=== PATIENT | male | born 1995 | race Caucasian/White ===

== ENCOUNTER 2021-01-19 08:23 | Emergency (ER) | payer SELFPAY ==
--- NOTE | ~2021-01-19 | XR_ITS ---
EXAMINATION: XR FINGER, LEFT CLINICAL INFORMATION: Left 3rd digit laceration at the distal phalanx. COMPARISON: None TECHNIQUE: PA view of the left hand as well as oblique and lateral views of the left long finger. FINDINGS: Soft tissue defect/laceration through the distal aspect of the 3rd finger. No radiopaque foreign body. No adjacent fracture. No osseous erosion. No abnormal soft tissue calcification. No dislocation. XR/XR finger LT min 2V IMPRESSION: Soft tissue laceration through the distal aspect of the 3rd finger without associated osseous abnormality.
[2021-01-19 08:44] VITALS: BP 139/92; PULSE 98; RESP 16; TEMP 36.3; O2SAT 100; BMI 19.9
--- NOTE | 2021-01-19 10:05 | ED.WOUNDLAC ---
HPI - Wound/Laceration General Chief Complaint: Wound/Laceration Stated Complaint: finger laceration Time Seen by Provider: 01/19/21 09:41 Source: patient Mode of arrival: ambulatory Limitations: no limitations History of Present Illness HPI narrative: 25-year-old male presenting to the ED after he had a work related injury where he lacerated his finger with a piece of a metal from the freezer. He reports that he is not up-to-date on tetanus. He reports pain denies any thoughts of foreign bodies or any other injuries complaints or concerns at this time. Onset (ago): minute(s) (Prior to arrival) Extremity Location: left: hand (Middle finger distal aspect) Place: work Patient tetanus UTD: No Context: accidental Associated symptoms: pain Treatments prior to arrival: bandage Related Data Previous Rx's Medication Instructions Recorded acetaminophen 500 mg tablet 1,000 mg PO QID PRN #14 tab 01/19/21 (Tylenol Extra Strength) cephalexin 500 mg capsule 500 mg PO Q6H 10 Days #40 cap 01/19/21 ibuprofen 800 mg tablet 800 mg PO Q8H PRN #14 tab 01/19/21 oxycodone 5 mg tablet 5 mg PO Q6H PRN #14 tab 01/19/21 Allergies Allergy/AdvReac Type Severity Reaction Status Date / Time No Known Allergies Allergy Verified 01/19/21 08:47 Review of Systems Review of Systems: Constitutional : No Fever, No Chills, Cardiovascular : No Chest Pain, No SOB Respiratory : No Dyspnea Gastrointestinal : No abdominal pain Musculoskeletal : No Joint Swelling Skin : positive skin laceration, No Foreign bodies, No rash, No surrounding erythema Neuro : No Weakness, No Numbness/tingling Psych : No SI/HI/thoughts of self injury Yes all other systems are reviewed and are negative FOR[facility]LY [facility] Past Medical History Attestation statement: The following information was validated with the patient. Medical History No known health problems Social History Social History Advance Directives: No Advance Directives Information Provided: No Physical Exam Vital Signs: Vital Signs: Last Vital Signs Temp 97.3 F 01/19/21 08:44 Pulse 98 01/19/21 08:44 Resp 16 01/19/21 08:44 BP 139/92 H 01/19/21 08:44 Pulse Ox 100 01/19/21 08:44 Body Mass Index 19.9 vital signs have been reviewed as normal and appeared to be correct. Blood pressure hypertensive 139/92 Heart rate normal. Respiration rate normal. Temperature normal. Oxygen saturation normal. Appearance: Alert. Oriented X3. No acute distress. Head: Normal external exam. Normocephalic. Atraumatic. Eyes: PERRLA. EOMI. Conjunctiva and sclera normal. Eyelids normal. ENT: Pharynx normal. Uvula midline. Moist mucous membranes. Neck: Normal inspection. Neck supple. FROM. CVS: Normal heart rate and rhythm. Respiratory: No respiratory distress. Painless inspiration. Skin: Skin warm and dry. Normal skin color. Normal skin turgor. No rashes/lesions/lacerations noted. Extremities: To left hand middle finger distal aspect patient has a 3 cm deep laceration that cuts directly vertical although no bony tenderness or obvious ligamentous or tendon injury. Patient has normal sensation. No foreign bodies are noted. Otherwise all other Extremities exhibit normal range of motion and nontender. Neuro: Oriented X 3. No motor deficit. No sensory deficit. Reflexes normal. Normal steady gait. No focal neuro deficits noted. Vascular: + radial pulses Normal cap refill. No cyanosis noted to upper extremity nails Course Course Course Narrative: Patient is now status post laceration repair with 9 stitches placed. Patient tolerated procedure well. No complications. Tetanus updated at this time. Patient given Keflex. X-ray negative for any acute processes. We will DC home with symptomatic treatment antibiotics and instructions to follow-up with hand surgeon and [facility] before returning to work on full duty instructions return in 10 days for suture removal. Patient is again if can not other at bedside understand with this plan. MDM - Wound/Laceration Medical Records Attestation: I reviewed the patient's medical records. Imaging Data Left hand middle finger x-ray: Attestation: I personally reviewed and interpreted this imaging study as follows: Radiologist's impression: FINDINGS: Soft tissue defect/laceration through the distal aspect of the 3rd finger. No radiopaque foreign body. No adjacent fracture. No osseous erosion. No abnormal soft tissue calcification. No dislocation.? XR/XR finger LT min 2V IMPRESSION: Soft tissue laceration through the distal aspect of the 3rd finger without associated osseous abnormality. Procedures Laceration Laceration 1: Site: hand (Middle finger distal aspect) Side (If applicable): left Size (cm): 3 Description: linear, flap and clean Depth: involves muscle layer Local Anesthetic: lidocaine 1% Amount of anesthesia used (mL): 4 Pre-repair: wound explored, irrigated extensively, deep structures intact and wound margins revised Skin layer closed with: nylon Size (cm): 5-0 Number of sutures: 9 Technique: simple, interrupted Critical Care Time Critical Care Time Critical Care Time: Yes Total Critical Care Time: 60 Attestation: I personally attest to this time spent taking care of the patient Discharge Plan Discharge Clinical Impression: Laceration, Work related injury Patient Disposition: Home, Self-Care Instructions: Finger Laceration (ED), Return to Work Instructions (ED) Prescriptions: New ibuprofen 800 mg tablet 800 mg PO Q8H PRN (Reason: pain) Qty: 14 RF: 0 acetaminophen [Tylenol Extra Strength] 500 mg tablet 1,000 mg PO QID PRN (Reason: fever or pain) Qty: 14 RF: 0 cephalexin 500 mg capsule 500 mg PO Q6H 10 Days Qty: 40 RF: 0 oxycodone 5 mg tablet 5 mg PO Q6H PRN (Reason: pain) Qty: 14 RF: 0 Referrals: [facility] [Provider Group] - 01/19/21 (Follow-up with [facility] not sure if her company is part with ours) Ban George MD [Physician] - 01/19/21 (Call today to make a follow-up appointment within 1 week) Beatrice Reese PA [Emergency Midlevel Provider] - 10 days (For suture removal) Stand Alone Forms: Work/School Release Print Language: Mexican
[2021-01-19] MEDS: oxyCODONE HCl Immed Release 5 MG TABLET PO (10:10)
[2021-01-19] MEDS: cephALEXin 500 MG CAPSULE PO (10:10)
[2021-01-19] MEDS: Diphth,Pertus(ACell),Tet Adult 0.5 ML SYRINGE IM (10:11)
[2021-01-19] MEDS: Lidocaine HCl 1 % MPF 5 ML VIAL SUBCUT (10:12)
== END 2021-01-19 11:03 | disposition home or self-care (01) ==
PROVIDERS: Emergency Provider Emergency Medicine
DX: S61.213A Laceration without foreign body of left middle finger without damage to nail, initial encounter (principal); W26.8XXA Contact with other sharp object(s), not elsewhere classified, initial encounter; Y93.9 Activity, unspecified; Y92.89 Other specified places as the place of occurrence of the external cause; Y99.0 Civilian activity done for income or pay
CPT/HCPCS: 12002; 73140; 90471; 90715; 99284

== ENCOUNTER → 2021-01-21 12:38 | Outpatient (BNVA) | payer OTHER, SELFPAY | PROVIDERS: Visit Provider Physician Assistant | DX: S61.213A Laceration without foreign body of left middle finger without damage to nail, initial encounter (principal); W45.8XXA Other foreign body or object entering through skin, initial encounter | CPT/HCPCS: 99203 ==

== ENCOUNTER → 2021-01-26 09:31 | Outpatient (BNVA) | payer OTHER, SELFPAY | PROVIDERS: Visit Provider Physician Assistant | DX: S61.213A Laceration without foreign body of left middle finger without damage to nail, initial encounter (principal); W26.9XXA Contact with unspecified sharp object(s), initial encounter | CPT/HCPCS: 99202; 99213 ==

== ENCOUNTER → 2021-01-28 09:19 | Outpatient (BNVA) | payer OTHER, SELFPAY | PROVIDERS: PCP Emergency Medicine; Visit Provider Physician Assistant | DX: S61.213A Laceration without foreign body of left middle finger without damage to nail, initial encounter (principal); W26.9XXA Contact with unspecified sharp object(s), initial encounter | CPT/HCPCS: 99213 ==

== ENCOUNTER → 2021-02-03 09:42 | Outpatient (BNVA) | payer OTHER, SELFPAY | PROVIDERS: PCP Emergency Medicine; Visit Provider Physician Assistant | DX: S61.213A Laceration without foreign body of left middle finger without damage to nail, initial encounter (principal); W45.8XXA Other foreign body or object entering through skin, initial encounter | CPT/HCPCS: 99214 ==

== ENCOUNTER → 2021-02-08 13:24 | Outpatient (BNVA) | payer OTHER, SELFPAY | PROVIDERS: Visit Provider Orthopaedic Surgery | DX: S61.213A Laceration without foreign body of left middle finger without damage to nail, initial encounter (principal); W22.8XXA Striking against or struck by other objects, initial encounter; Y93.H2 Activity, gardening and landscaping; Y92.9 Unspecified place or not applicable; Y99.8 Other external cause status | CPT/HCPCS: 99212 ==